=== PATIENT | male | born 1985 | race Hispanic/Latino ===

== ENCOUNTER 2017-04-19 10:28 | Emergency (ER) | payer BC, OTHER ==
[2017-04-19 10:29] VITALS: BMI 26.6
[2017-04-19 10:45] VITALS: BP 125/83; PULSE 90; RESP 16; TEMP 98.7; O2SAT 98
--- NOTE | 2017-04-19 11:55 | ED PDOC ---
Arrival/HPI - General Chief Complaint: Psychiatric Evaluation Time Seen by Provider: 04/19/17 11:02 Historian: Patient - History of Present Illness Narrative History of Present Illness (Text): 04/19/17 11:45 The patient is a 31yo male, PMhx of anxiety, presents to the ED for evaluation of worsening anxiety for the past week. Pt reports he has been taking Xanax PRN and Zoloft 25mg, with no relief. Of note, pt states he took Zoloft for the first time yesterday. Pt reports he feels nervous. He denies any suicidal ideation, homicidal ideation, delusions or hallucinations. Pt offers no additional medical complaints. PCP: Dr. Sepulveda Time/Duration: 1 week Symptom Course: Worsening Past Medical History - Provider Review Nursing Documentation Reviewed: Yes - Infectious Disease Hx of Infectious Diseases: None - Tetanus Immunization Tetanus Immunization: Unknown - Musculoskeletal/Rheumatological Other/Comment: neck pain - Psychiatric Hx Anxiety: Yes Hx Depression: Yes Hx Substance Use: Yes - Surgical History Other/Comment: varicocel - Anesthesia Hx Anesthesia: Yes Hx Anesthesia Reactions: No - Suicidal Assessment Suicidal Thoughts: No Plan: No Family/Social History - Physician Review Nursing Documentation Reviewed: Yes Family/Social History: Unknown Family HX Smoking Status: Unknown If Ever Smoked Hx Alcohol Use: Yes Frequency of alcohol use: Socially Hx Substance Use: Yes Substance used: marijuana Hx Substance Use Treatment: No Allergies/Home Meds Allergies/Adverse Reactions: Allergies seasonal Allergy (Uncoded 04/19/17 10:45) CONGESTION Home Medications: Home Meds Medication Instructions Recorded Confirmed ALPRAZolam [Xanax] 0.25 mg PO PRN PRN 04/19/17 04/19/17 Sertraline HCl [Zoloft] 25 mg PO DAILY 04/19/17 04/19/17 Review of Systems - Review of Systems Psychiatric: Anxiety. absent: Suicidal Ideation, Other (hallucinations, delusions) Physical Exam Vital Signs Reviewed: Yes Vital Signs Temp Pulse Resp BP Pulse Ox 04/19/17 10:39 98.7 F 90 16 125/83 98 Appearance: Positive for: Well-Appearing, Non-Toxic, Comfortable Mental Status: Positive for: Alert and Oriented X 3 - Systems Exam Head: Present: Atraumatic, Normocephalic Pupils: Present: PERRL Extroacular Muscles: Present: EOMI Conjunctiva: Present: Normal Mouth: Present: Moist Mucous Membranes Neck: Present: Normal Range of Motion Respiratory/Chest: Present: Clear to Auscultation, Good Air Exchange Cardiovascular: Present: Regular Rate and Rhythm Abdomen: Present: Normal Bowel Sounds. No: Tenderness, Distention, Peritoneal Signs Back: Present: Normal Inspection Upper Extremity: Present: Normal Inspection Lower Extremity: Present: Normal Inspection Neurological: Present: GCS=15, CN II-XII Intact, Speech Normal Skin: Present: Warm, Dry, Normal Color. No: Rashes Psychiatric: Present: Alert, Oriented x 3 Medical Decision Making ED Course and Treatment: 04/19/17 11:56 Impression: Anxiety and depression Diff Dx (includes but not limited to): Plan: -- Crisis evaluation -- Ativan 1mg PO -- Reassess and disposition Progress Notes: 04/19/17 12:40 Patient was evaluated by MIN Daniel who set patient up for follow up today or early in the morning. Patient said that he is going to go in the morning because that works better for him. He denies SI/HI. He feels better and comfortable going home with follow up. - Medication Orders Current Medication Orders: Discontinued Medications Lorazepam (Ativan) 1 mg PO ONCE ONE PRN Reason: Protocol Stop: 04/19/17 11:26 Last Admin: 04/19/17 11:32 Dose: 1 mg - Scribe Statement The provider has reviewed the documentation as recorded by the Kristen Gould Provider Scribe Attestation: All medical record entries made by the Yobaniibjeana were at my direction and personally dictated by me. I have reviewed the chart and agree that the record accurately reflects my personal performance of the history, physical exam, medical decision making, and the department course for this patient. I have also personally directed, reviewed, and agree with the discharge instructions and disposition. Disposition/Present on Arrival - Present on Arrival Any Indicators Present on Arrival: No History of DVT/PE: No History of Uncontrolled Diabetes: No Urinary Catheter: No History of Decub. Ulcer: No History Surgical Site Infection Following: None - Disposition Have Diagnosis and Disposition been Completed?: Yes Diagnosis: Anxiety Disposition: HOME/ ROUTINE Disposition Time: 12:40 Patient Plan: Discharge Patient Problems: Current Active Problems Problem Status Onset Anxiety Acute Condition: IMPROVED Discharge Instructions (ExitCare): Anxiety (ED) Additional Instructions: Mr Marquez, thank you for letting us take care of you today. Your provider was Dr. Armstrong. You were treated for Anxiety. The emergency medical care you received today was directed at your acute symptoms. If you were prescribed any medication, please fill it and take as directed. It may take several days for your symptoms to resolve. Return to the Emergency Department if your symptoms worsen, do not improve, or if you have any other problems. Please contact your doctor or call one of the physicians/clinics you have been referred to that are listed on the Patient Visit Information form that is included in your discharge packet. Bring any paperwork you were given at discharge with you along with any medications you are taking to your follow up visit. Our treatment cannot replace ongoing medical care by a primary care provider (PCP) outside of the emergency department. Make sure to follow up with [facility] as discussed with me and with Psychiatry staff today. Thank you for allowing the [facility] team to be part of your care today. If you had an X-Ray or CT scan: A Radiologist will review the ED reading if any change in treatment is needed we will contact you. If you had a blood, urine, or wound culture: It will take several days for the results, if any change in treatment is needed we will contact you. If you had an STI test: It will take 48 hours for the results. Please call after 1 week if you have not heard back. Referrals: Claude Sepulveda MD [Primary Care Provider] - Follow up with primary Forms: [employer] (Canadian), WORK NOTE
== END 2017-04-19 12:42 | disposition home or self-care (01) ==
LOC: ED 10:28
DX: F41.9 Anxiety disorder, unspecified (principal)

== ENCOUNTER 2018-09-14 18:22 | Emergency (ER) | payer OTHER ==
[2018-09-14 18:22] VITALS: BMI 26.6
[2018-09-14 19:45] VITALS: BP 128/80; PULSE 80; RESP 18; TEMP 98.7; O2SAT 100
--- NOTE | 2018-09-14 19:58 | ED PDOC ---
Arrival/HPI - General Chief Complaint: Abnormal Skin Integrity Time Seen by Provider: 09/14/18 19:17 Historian: Patient - History of Present Illness Narrative History of Present Illness (Text): 09/14/18 19:20 33 year old male, whose past medical history includes anxiety, who was sent to the emergency department by urgent care for evaluation of vesicular rash noted to right eye since yesterday. Patient denies any issues with visual acuity, or any other complaint. PMD: Claude Ruffin Time/Duration: Other (pt notes rash since yesterday ) Symptom Onset: Sudden Symptom Course: Unchanged Activities at Onset: Light Past Medical History - Provider Review Nursing Documentation Reviewed: Yes - Infectious Disease Hx of Infectious Diseases: None - Tetanus Immunization Tetanus Immunization: Unknown - Cardiac Hx Cardiac Disorders: No Hx Hypertension: No - Pulmonary Hx Tuberculosis: No - Neurological HX Cerebrovascular Accident: No Hx Seizures: No - Hematological/Oncological Hx Cancer: No - Musculoskeletal/Rheumatological Other/Comment: neck pain - Genitourinary/Gynecological Hx Sexually Transmitted Diseases: No - Psychiatric Hx Anxiety: Yes Hx Depression: Yes Hx Substance Use: Yes - Surgical History Other/Comment: varicocel - Anesthesia Hx Anesthesia: Yes Hx Anesthesia Reactions: No Hx Malignant Hyperthermia: No Family/Social History - Physician Review Nursing Documentation Reviewed: Yes Family/Social History: No Known Family HX Smoking Status: Unknown If Ever Smoked Hx Alcohol Use: Yes Hx Substance Use: Yes Substance used: marijuana Hx Substance Use Treatment: No Allergies/Home Meds Allergies/Adverse Reactions: Allergies seasonal Allergy (Uncoded 04/19/17 10:45) CONGESTION Home Medications: Home Meds Medication Instructions Recorded Confirmed ALPRAZolam [Xanax] 0.25 mg PO PRN PRN 04/19/17 04/19/17 Sertraline HCl [Zoloft] 25 mg PO DAILY 04/19/17 04/19/17 Review of Systems - Physician Review All systems were reviewed & negative as marked: Yes - Review of Systems Constitutional: Normal Eyes: Normal, Other (Pt notes vesicular rash noted to right eye since yesterday.). absent: Vision Changes Physical Exam Vital Signs Reviewed: Yes Vital Signs Temp Pulse Resp BP Pulse Ox 09/14/18 19:10 98.7 F 80 18 128/80 100 Temperature: Afebrile Blood Pressure: Normal Pulse: Regular Respiratory Rate: Normal Appearance: Positive for: Well-Appearing, Non-Toxic Pain Distress: None Mental Status: Positive for: Alert and Oriented X 3 - Systems Exam Head: Present: Atraumatic, Normocephalic Pupils: Present: PERRL Extroacular Muscles: Present: EOMI Conjunctiva: Present: Normal Mouth: Present: Moist Mucous Membranes Neck: Present: Normal Range of Motion Respiratory/Chest: Present: Clear to Auscultation, Good Air Exchange. No: Respiratory Distress, Accessory Muscle Use Cardiovascular: Present: Regular Rate and Rhythm, Normal S1, S2. No: Murmurs Abdomen: No: Tenderness, Distention, Peritoneal Signs Back: Present: Normal Inspection Upper Extremity: Present: Normal Inspection. No: Cyanosis, Edema Lower Extremity: Present: Normal Inspection. No: Edema Neurological: Present: GCS=15, CN II-XII Intact, Speech Normal Skin: Present: Warm, Dry, Rashes, Other (vesicles to right lower eyelid) Psychiatric: Present: Alert, Oriented x 3, Normal Insight, Normal Concentration Medical Decision Making ED Course and Treatment: 09/14/18 19:20 Impression: 33 year old male who was sent to the emergency department by urgent care for evaluation of vesicular rash noted to right eye since yesterday. Differential Diagnosis included but are not limited to: Plan: -- Reassess and disposition Prior Visits: Notes and results from previous visits were reviewed. Progress Notes: 09/14/18 21:02 case discuss with optho, requests valtrex 2000 bid, and and prophalxic anbitioics and outpt fu in am. - Scribe Statement The provider has reviewed the documentation as recorded by the Scribe Yanet Pineda All medical record entries made by the Scribe were at my direction and personally dictated by me. I have reviewed the chart and agree that the record accurately reflects my personal performance of the history, physical exam, medical decision making, and the department course for this patient. I have also personally directed, reviewed, and agree with the discharge instructions and disposition. Disposition/Present on Arrival - Present on Arrival Any Indicators Present on Arrival: No History of DVT/PE: No History of Uncontrolled Diabetes: No Urinary Catheter: No History of Decub. Ulcer: No History Surgical Site Infection Following: None - Disposition Have Diagnosis and Disposition been Completed?: Yes Diagnosis: Shingles Disposition: HOME/ ROUTINE Disposition Time: 20:00 Condition: STABLE Discharge Instructions (ExitCare): Shingles (DC), Shingles (ED) Prescriptions: RX: prescription pad 1 unit OD 5XD #1 ea Valacyclovir HCl [Valtrex] 2,000 mg PO BID #10 tablet Referrals: John Villarreal MD [Staff Provider] - Follow up with primary Forms: [employer] (Mongolian)
== END 2018-09-14 20:18 | disposition home or self-care (01) ==
LOC: ED 18:22
DX: B02.9 Zoster without complications (principal)